=== PATIENT | female | born 1995 | race American Indian/Alaskan Native ===

== ENCOUNTER 2017-04-28 13:16 | Emergency (ER) | payer BC ==
[2017-04-28 13:21] VITALS: BMI 54.2
[2017-04-28] MEDS ORDERED: Sodium Chloride 0.9% 1,000 ML IV ONE (14:17)
[2017-04-28] MEDS ORDERED: Sodium Chloride 0.9% 1,000 ML ONE (14:33)
[2017-04-28 14:44] LABS: BASO % 0.7 % (0.0-2.0); EOS % 0.1 % (0.0-4.0); HEMOGLOBIN 13.3 g/dL (11.0-16.0); LYMPH # 1.1 K/uL (1.0-4.3); LYMPH % 25.8 % (20.0-40.0); MEAN CELL VOLUME 77.1 fL (81.0-99.0); MEAN CORPUSCULAR HEMOGLOBIN 25.8 pg (27.0-31.0); MEAN CORPUSCULAR HGB CONC 33.4 g/dL (33.0-37.0); MONO # 0.4 K/uL (0.0-0.8); MONO % 10.8 % (0.0-10.0); NEUT # 2.6 K/uL (1.8-7.0); NEUT % 62.6 % (50.0-75.0); NRBC % 0.1 % (0.0-2.0); RBC 5.16 Mil/uL (3.80-5.20); RED CELL DISTRIBUTION WIDTH 14.4 % (11.5-14.5); WHITE BLOOD COUNT 4.1 K/uL (4.8-10.8)
[2017-04-28 14:55] LABS: HCG,QUALITATIVE URINE NEGATIVE (NEGATIVE)
[2017-04-28 14:58] LABS: SQUAMOUS EPITHIAL 14 /hpf (0-5); URINE BACTERIA RARE (<OCC); URINE BILIRUBIN NEGATIVE (NEGATIVE); URINE BLOOD NEGATIVE (NEGATIVE); URINE CLARITY Hazy (Clear); URINE GLUCOSE (UA) NORMAL (Normal); URINE HYALINE CAST 0-2 /lpf (0-2); URINE LEUKOCYTE ESTERASE NEG Leu/uL (Negative); URINE NITRATE NEGATIVE (NEGATIVE); URINE PROTEIN 1+ mg/dL (NEGATIVE)
[2017-04-28 15:01] LABS: URINE COLOR YELLOW (YELLOW)
[2017-04-28 15:14] LABS: ALBUMIN 3.4 g/dL (3.5-5.0)
[2017-04-28 15:17] LABS: ALB/GLOB RATIO 0.9 (1.0-2.1); AST/SGOT 44 U/L (14-36); BLOOD UREA NITROGEN 7 mg/dL (7-17); GFR AFRICAN-AMERICAN > 60; GFR NON-AFRICAN AMERICAN > 60
[2017-04-28 15:18] LABS: ALT/SGPT 34 U/L (9-52); CALCIUM 8.2 mg/dl (8.6-10.4)
--- NOTE | 2017-04-28 15:36 | CT ---
PROCEDURE: CT scan sinuses dated 04/28/2017 HISTORY: Headache and fever. COMPARISON: Correlation made with concurrent CT scan brain TECHNIQUE: Contiguous helical/transaxial CT images of the paranasal sinuses were obtained. Coronal and sagittal reformats were generated. Radiation dose: Total exam DLP = 649.99 mGy-cm. This CT exam was performed using one or more of the following dose reduction techniques: Automated exposure control, adjustment of the mA and/or kV according to patient size, and/or use of iterative reconstruction technique. . FINDINGS: Findings: Visualized paranasal sinuses are well-developed and currently well-aerated. No fluid levels seen to suggest acute sinusitis. Questionable minimal aerosolized mucosal secretions right chamber sphenoid sinus with minimal mucosal thickening left chamber sphenoid sinus. The osseous structures appear intact without destructive or sclerotic changes. The ostiomeatal complexes as well as the frontal and sphenoid ethmoidal recesses are patent. Small left and tiny right sided rosa bullosa present. Orbits and contents unremarkable. Impression: No evidence of acute sinusitis. Minimal mucosal thickening sphenoid sinus, which on the right side, appears partially aerosolized. . No bony destructive changes.
--- NOTE | 2017-04-28 15:39 | CT ---
PROCEDURE: CT HEAD WITHOUT CONTRAST. HISTORY: Headache, fever. COMPARISON: Correlation made with concurrent CT scan of the sinuses. TECHNIQUE: Axial computed tomography images were obtained through the head/brain without intravenous contrast. Radiation dose: Total exam DLP = mGy-cm. This CT exam was performed using one or more of the following dose reduction techniques: Automated exposure control, adjustment of the mA and/or kV according to patient size, and/or use of iterative reconstruction technique. FINDINGS: HEMORRHAGE: No acute parenchymal, subarachnoid or extra-axial hemorrhage. BRAIN: No mass effect or edema. No atrophy or chronic microvascular ischemic changes. VENTRICLES: Unremarkable. No hydrocephalus. CALVARIUM: Unremarkable. PARANASAL SINUSES: Unremarkable as visualized. No significant inflammatory changes. MASTOID AIR CELLS: Unremarkable as visualized. No inflammatory changes. OTHER FINDINGS: None. IMPRESSION: No acute intracranial hemorrhage.
[2017-04-28 16:50] VITALS: O2SAT 100
--- NOTE | 2017-04-28 17:19 | C.PDOC ---
Time Seen by Provider: 04/28/17 14:08 Chief Complaint (Nursing): Fever History Per: Patient, Family Onset/Duration Of Symptoms: Days (1) Current Symptoms Are (Timing): Still Present Location Of Pain: Headache Associated Symptoms: Fever Severity: Moderate Recent travel outside of the [place]: No Additional History Per: Prior Records Past Medical History Reviewed: Historical Data, Nursing Documentation, Vital Signs Vital Signs: Last Vital Signs Temp 99.0 F 04/28/17 16:40 Pulse 87 04/28/17 16:40 Resp 20 04/28/17 16:40 BP 118/67 04/28/17 16:40 Pulse Ox 100 04/28/17 16:40 - Medical History PMH: Depression Family History: States: Unknown Family Hx - Social History Hx Alcohol Use: Yes Hx Substance Use: No - Immunization History Hx Tetanus Toxoid Vaccination: No Hx Influenza Vaccination: No Hx Pneumococcal Vaccination: No Review Of Systems Except As Marked, All Systems Reviewed And Found Negative. Constitutional: Positive for: Fever ENT: Negative for: Throat Pain Cardiovascular: Negative for: Chest Pain Respiratory: Negative for: Shortness of Breath Gastrointestinal: Negative for: Vomiting, Abdominal Pain, Diarrhea Genitourinary: Negative for: Dysuria Musculoskeletal: Negative for: Back Pain Skin: Negative for: Rash Neurological: Positive for: Headache (few days). Negative for: Weakness, Numbness Physical Exam - Physical Exam Appears: Non-toxic, No Acute Distress Skin: Normal Color, Warm, Dry, No Rash Head: Atraumatic, Normacephalic Eye(s): bilateral: Normal Inspection, PERRL, EOMI Ear(s): Bilateral: Normal Throat: Normal Neck: Normal ROM, Supple Cardiovascular: Rhythm Regular Respiratory: Normal Breath Sounds, No Accessory Muscle Use Gastrointestinal/Abdominal: Soft, No Tenderness Back: No CVA Tenderness Extremity: Normal ROM Neurological/Psych: Oriented x3, Normal Speech, Normal Cognition, Normal Motor, Normal Sensation ED Course And Treatment - Laboratory Results Result Diagrams: 04/28/17 14:34 04/28/17 14:34 Lab Interpretation: No Acute Changes Urine POC: Negative O2 Sat by Pulse Oximetry: 100 Pulse Ox Interpretation: Normal - CT Scan/US CT head Other Rad Studies (CT/US): Read By Radiologist, Radiology Report Reviewed CT/US Interpretation: IMPRESSION: No acute intracranial hemorrhage. Progress Note: Pt feels much better. Headache resolved. Reassessment Condition: Improved Progress - Interventions Interventions:: Observation, Intravenous fluid - Medications Administered Intravenous: Antiemetic, NSAID - Data Reviewed Data Reviewed: Lab, Diagnostic imaging, Old records - Patient Status Patient status: Mostly improved - Continuity of Care Discussed patient case with:: Patient, Family-HIPPA compliant, ED Nurse - Patient Plan Patient Plan: Discharge, F/U with PCP Disposition Counseled Patient/Family Regarding: Studies Performed, Diagnosis, Need For Followup, Rx Given - Disposition Referrals: Sneha Arellano MD [Medical Doctor] - Disposition: HOME/ ROUTINE Disposition Time: 17:23 Condition: IMPROVED Additional Instructions: Drink plenty of fluids. Follow up with your doctor within 1-2 days. Return to the ER if you develop lethargy, vomiting, confusion, stiff neck, worsening of symptoms or if you have any other concerns. Prescriptions: Naproxen [Naprosyn] 1 tab PO BID PRN #20 tab PRN Reason: Pain Instructions: Fever in Adults (ED) - Clinical Impression Clinical Impression: Fever, Headache
[2017-04-28 17:55] VITALS: BP 104/73; PULSE 81; RESP 18; TEMP 98.5
== END 2017-04-28 17:59 | disposition home or self-care (01) ==
LOC: C.ER 13:16
DX: R51 Headache (principal); R50.9 Fever, unspecified
CPT/HCPCS: 70450; 70486; 80053; 81001; 84703; 85025; 96361; 96374; 96375; 99285; J1885; J2765; J7040